=== PATIENT | male | born 1950 | race Caucasian/White ===

== ENCOUNTER 2021-10-28 11:44 | Observation (INO) ==
[~2021-10-28 11:44] MED LIST: ASPIRIN 325 MG TABLET PO ONE; DIAZEPAM 5 MG TABLET PO ONE; MAGNESIUM SULF RIDER 2 GM/50 ML PREMIX IV PRN; POTASSIUM CHLORIDE RIDER 10 MEQ/100 ML PREMIX IV PRN; diphenhydrAMINE CAP 50 MG CAPSULE PO ONE
[2021-10-28] MEDS ORDERED: DIAZEPAM 5 MG TABLET ONE (11:57)
[2021-10-28] MEDS ORDERED: ASPIRIN 325 MG TABLET ONE (11:58)
[2021-10-28] MEDS ORDERED: diphenhydrAMINE CAP 50 MG CAPSULE ONE (11:58)
[2021-10-28] MEDS: SODIUM CHLORIDE 0.9% 1,000 ML IV SCH ×2 (11:59→23:48)
[2021-10-28 12:28] LABS: Bilirubin,Total 1.2 MG/DL (0.20-1.00); Calcium 9.2 MG/DL (8.5-10.1); Osmolality,Calculated 274.8 MOS/KG (273-304); Potassium 4.2 MMOL/L (3.5-5.1); Total Protein 7.4 G/DL (6.4-8.2)
[2021-10-28] MEDS ORDERED: VERAPAMIL 5 MG/2 ML VIAL ONE (13:05)
[2021-10-28] MEDS ORDERED: MIDAZOLAM 2 MG/2 ML VIAL ONE (13:05)
[2021-10-28] MEDS ORDERED: NITROGLYCERIN DRIP 50 MG/250 ML BOTTLE IV ONE (13:05)
[2021-10-28] MEDS ORDERED: HYDROmorphone 1 MG/1 ML SYRINGE ONE (13:05)
[2021-10-28] MEDS ORDERED: ENOXAPARIN 60 MG/0.6 ML SYRINGE ONE (13:18)
[2021-10-28 13:22] LABS: Basophils # 0.1 10*3/uL (0.0-0.2); Eosinophils # 0.3 10*3/uL (0.0-0.87); Eosinophils % 4.4 % (0.00-10.9); Hematocrit 41.8 VOL% (42.0-52.0); Hemoglobin 14.2 GM/DL (14.0-18.0); Immature Granulocytes % 0.3 %; Immature Granulocytes Absolute 0.02 #; Lymphocytes # 1.5 10*3/uL (1.4-4.0); Lymphocytes % 25.3 % (21.2-54.2); Mean Corpuscular Volume 99.8 FL (87-102); Mean Platelet Volume 12.1 FL (9.6-12.0); Monocytes # 0.5 10*3/uL (0.11-0.8); Monocytes % 7.9 % (1.7-12.7); Neutrophils % 61.1 % (38.7-73.9); Platelet Count 123 T/CUMM (130-400); Red Blood Count 4.19 MC/CUMM (3.8-5.5); Red Cell Distribution Width 13.3 % (9.3-17.3); White Blood Count 5.9 T/CUMM (4-12)
[2021-10-28] MEDS ORDERED: ENOXAPARIN 30 MG/0.3 ML SYRINGE ONE ×3 (13:37→15:34)
[2021-10-28] MEDS ORDERED: PRASUGREL 10 MG TABLET ONE (13:37)
[2021-10-28] MEDS ORDERED: TIROFIBAN 5,000 MCG/100 ML PREMIX IV ONE (15:17)
[2021-10-28] MEDS ORDERED: TIROFIBAN 5,000 MCG/100 ML PREMIX IV SCH (15:24)
[2021-10-28] MEDS ORDERED: HYDROmorphone 1 MG/1 ML SYRINGE IV PRN (15:52)
[2021-10-28] MEDS ORDERED: ACETAMINOPHEN 325 MG TABLET PO PRN (18:40)
[2021-10-28] MEDS: METOPROLOL SUCCINATE XL 50 MG TABLET PO SCH (21:50)
[2021-10-28] MEDS: COLESTIPOL 1 GM TABLET PO SCH (21:50)
[2021-10-29 05:52] LABS: Calcium 8.8 MG/DL (8.5-10.1); Osmolality,Calculated 275.7 MOS/KG (273-304); Potassium 4.6 MMOL/L (3.5-5.1)
[2021-10-29 06:16] LABS: Basophils % 0.9 % (0.0-0.8); Eosinophils # 0.3 10*3/uL (0.0-0.87); Eosinophils % 5.7 % (0.00-10.9); Hematocrit 37.2 VOL% (42.0-52.0); Hemoglobin 12.7 GM/DL (14.0-18.0); Immature Granulocytes % 0.5 %; Immature Granulocytes Absolute 0.02 #; Lymphocytes % 23.8 % (21.2-54.2); Mean Corpuscular HGB Conc 34.1 GM/DL (32-36); Mean Corpuscular Volume 99.5 FL (87-102); Mean Platelet Volume 11.9 FL (9.6-12.0); Monocytes # 0.4 10*3/uL (0.11-0.8); Monocytes % 9.4 % (1.7-12.7); Neutrophils % 59.7 % (38.7-73.9); Red Blood Count 3.74 MC/CUMM (3.8-5.5); Red Cell Distribution Width 13.3 % (9.3-17.3); White Blood Count 4.4 T/CUMM (4-12)
[2021-10-29 06:18] LABS: Platelet Count 97 T/CUMM (130-400)
[2021-10-29 06:26] LABS: Platelet Estimate Decreased
[2021-10-29] MEDS ORDERED: LEVOTHYROXINE 88 MCG TABLET PO SCH (06:30)
[2021-10-29] MEDS ORDERED: PRASUGREL 10 MG TABLET PO SCH (09:00)
[2021-10-29] MEDS ORDERED: ASPIRIN EC 81 MG TABLET PO SCH ×2 (09:00)
[2021-10-29] MEDS: COLESTIPOL 1 GM TABLET PO SCH (09:14)
[2021-10-29] MEDS: METOPROLOL SUCCINATE XL 50 MG TABLET PO SCH (09:14)
[2021-10-29] MEDS: SODIUM CHLORIDE 0.9% 1,000 ML IV SCH (10:03)
[2021-10-29 10:34] VITALS: BP 160/87
== END 2021-10-29 11:11 | disposition home or self-care (01) ==
LOC: N.CL 11:44 → INTOOBSV 16:18 → N.TELES 16:18
PROVIDERS: ADMIT Internal Medicine Cardiovascular Disease; ATTEND Internal Medicine Cardiovascular Disease